=== PATIENT | male | born 1975 | race Caucasian/White ===

== ENCOUNTER 2018-12-18 14:38 | Inpatient (IN) | payer MEDICAID ==
[~2018-12-18] VITALS: Ht 165.1 cm; Wt 68.0 kg
[~2018-12-18 14:38] MED LIST: DESFLURANE 15 MIN ONE; GLYCOPYRROLATE 0.4 MG INJ ONE; LIDOCAINE 2% (SDV) 5 ML INJ ONE; NEOSTIGMINE 10 MG INJ ONE; PROPOFOL 200 MG INJ ONE
[2018-12-18] MEDS ORDERED: SOD CHLORIDE 0.9% 1,000 ML IV STA (16:25)
[2018-12-18] MEDS ORDERED: morphine 2 MG INJ IV STA (16:25)
[2018-12-18] MEDS ORDERED: ONDANSETRON 4 MG INJ IV STA (16:25)
--- NOTE | 2018-12-18 16:58 | ERD ---
ER Documentation Chief Complaint Chief Complaint ap x 2 days with n/v/d HPI This is a 43-year-old male with a nonsignificant past medical history presents ED with complaints of periumbilical abdominal pain that started 2 days ago. P atient states that the abdominal pain is constant and has been intensifying in severity over the past 2 days. Initially with onset of abdominal pain he rated pain at a 2 out of 10 but he now states that it is an 8 out of 10. Patient describes the pain as a pushing bubbly-like sensation. Admits to some fevers and chills. Denies chest pain, shortness breath, trouble breathing, nausea, vomiting, diarrhea, constipation, melena, hematochezia, hematemesis, hemoptysis, dysuria, hematuria and all the symptoms. Admits to smoking once a week. Denies alcohol and drug use. ROS All systems reviewed and are negative except as per history of present illness. Allergies Allergies: Coded Allergies: No Known Allergy (Unverified , 12/18/18) PMhx/Soc Medical and Surgical Hx: pt denies Medical Hx, pt denies Surgical Hx Hx Alcohol Use: No Hx Substance Use: No Hx Tobacco Use: Yes Smoking Status: Current some day smoker FmHx Family History: No diabetes Physical Exam Vitals Vital Signs Date Temp Pulse Resp B/P (MAP) Pulse Ox O2 O2 Flow FiO2 Time Delivery Rate 12/18/18 99.0 96 18 116/62 99 15:07 (80) Physical Exam Physical Exam Vitals signs: Reviewed by me. General: Well developed, well nourished, in no acute distress. Patient is awake and alert. Head: Normocephalic, atraumatic. Eyes: Normal conjunctiva, Pupils PERRLA, EOM intact grossly ENT: Pharynx is clear, Moist mucous membranes, external ears, nose and mouth normal Neck: Supple, no masses, lymphadenopathy or JVD Respiratory: Clear to auscultation bilaterally with no wheezing, rhonchi, rales, no distress Cardiovascular: RRR, no murmurs, rubs, or gallops Abdominal: Soft, nondistended, no peritoneal signs, no rigidity, no surgical abdomen, bowel sounds present all 4 quadrants, moderate tenderness palpation in right lower quadrant, umbilical region and right upper quadrant, no rebound tenderness, : Deferred Neurologic: Alert and oriented, moving all extremities, normal speech, no focal weakness, no cerebellar signs. Normal mentation Skin: warm and dry, No rash Psych: Normal mood Result Diagram: 12/18/18 1643 12/18/18 1643 Results 24 hrs Laboratory Tests Test 12/18/18 16:43 White Blood Count 8.1 10^3/ul Red Blood Count 6.04 10^6/ul Hemoglobin 15.1 g/dl Hematocrit 47.6 % Mean Corpuscular Volume 78.8 fl Mean Corpuscular Hemoglobin 25.0 pg Mean Corpuscular Hemoglobin Concent 31.7 g/dl Red Cell Distribution Width 14.0 % Platelet Count 204 10^3/UL Mean Platelet Volume 9.5 fl Immature Granulocytes % 0.200 % Neutrophils % 86.8 % Lymphocytes % 8.5 % Monocytes % 4.2 % Eosinophils % 0.1 % Basophils % 0.2 % Nucleated Red Blood Cells % 0.0 /100WBC Immature Granulocytes # 0.020 10^3/ul Neutrophils # 7.0 10^3/ul Lymphocytes # 0.7 10^3/ul Monocytes # 0.3 10^3/ul Eosinophils # 0.0 10^3/ul Basophils # 0.0 10^3/ul Nucleated Red Blood Cells # 0.0 10^3/ul Urine Color YELLOW Urine Clarity CLEAR Urine pH 6.0 Urine Specific [place] 1.026 Urine Ketones 1+ mg/dL Urine Nitrite NEGATIVE mg/dL Urine Bilirubin NEGATIVE mg/dL Urine Urobilinogen 1+ mg/dL Urine Leukocyte Esterase NEGATIVE [place]/ul Urine Microscopic RBC 0 /HPF Urine Microscopic WBC 4 /HPF Urine Bacteria FEW /HPF Urine Mucus MANY /HPF Urine Hemoglobin NEGATIVE mg/dL Urine Glucose NEGATIVE mg/dL Urine Total Protein 1+ mg/dl Sodium Level 142 mmol/L Potassium Level 4.0 mmol/L Chloride Level 103 mmol/L Carbon Dioxide Level 29 mmol/L Anion Gap 10 Blood Urea Nitrogen 12 mg/dl Creatinine 0.72 mg/dl Est Glomerular Filtrat Rate mL/min > 60 mL/min Glucose Level 98 mg/dl Calcium Level 9.8 mg/dl Total Bilirubin 0.7 mg/dl Direct Bilirubin 0.00 mg/dl Indirect Bilirubin 0.7 mg/dl Aspartate Amino Transf (AST/SGOT) 31 IU/L Alanine Aminotransferase (ALT/SGPT) 24 IU/L Alkaline Phosphatase 115 IU/L Total Protein 8.6 g/dl Albumin 4.9 g/dl Globulin 3.70 g/dl Albumin/Globulin Ratio 1.32 Lipase 31 U/L Current Medications Medications Dose Sig/Ella Start Time Status Last (Trade) Ordered Route PRN Stop Time Admin Dose Reason Admin Sodium 1,000 ml @ Q1H STAT 12/18/18 DC 12/18/18 Chloride 1,000 mls/hr IV 16:25 17:03 12/18/18 17:24 Morphine 4 mg ONCE STAT 12/18/18 DC 12/18/18 Sulfate IV 16:25 17:04 (morphine) 12/18/18 16:27 Ondansetron 4 mg ONCE STAT 12/18/18 DC 12/18/18 HCl (Zofran IV 16:25 17:03 Inj) 12/18/18 16:27 Piperacillin 100 ml @ ONCE ONCE 12/18/18 DC 12/18/18 Sod/ 200 mls/hr IVPB 18:30 18:37 Tazobactam 12/18/18 18:59 Sod Potassium 1,000 ml @ Q8H ONCE 12/18/18 12/18/18 Chloride/Dext 125 mls/hr IV 18:38 19:16 thalia/ Sod Cl 12/19/18 02:37 IV Flush 3 ml PER 12/18/18 (NS 3 ml) PROTOCOL IV 19:00 Ondansetron 4 mg Q6H PRN 12/18/18 HCl (Zofran IV 19:00 Inj) NAUSEA/VOMITI NG 650 mg Q6H PRN 12/18/18 Acetaminophen PO .PAIN 1-3 19:00 (Tylenol OR TEMP Tab) 1 tab Q6H PRN 12/18/18 Acetaminophen PO .MOD PAIN 19:00 / 4-6 Hydrocodone Bitart ([place] (5/325)) Morphine 2 mg Q4H PRN 12/18/18 Sulfate IV .SEVERE 19:00 (morphine) PAIN 7-10 Docusate 100 mg Q12H PRN 12/18/18 Sodium PO 19:00 (Colace) .CONSTIPATION Magnesium 30 ml DAILY PRN 12/18/18 Hydroxide PO 19:00 (Milk Of Mag) .CONSTIPATION Lorazepam 0.5 mg Q6H PRN 12/18/18 (Ativan) IV ANXIETY 19:00 Albuterol/ 3 ml Q4H RESP 12/18/18 Ipratropium THERAPY PRN 19:00 (Duoneb) HHN SHORTNESS OF BREATH 1 tab Q5M PRN 12/18/18 Nitroglycerin SL ANGINA 19:00 (Nitroglyceri n (Sl Tab) 0.4 Mg) Lorazepam 0.5 mg Q6H PRN 12/18/18 DC (Ativan) IV ANXIETY 19:00 12/18/18 19:25 Albuterol/ 3 ml Q4H RESP 12/18/18 DC Ipratropium THERAPY PRN 19:00 (Duoneb) HHN 12/18/18 19:23 SHORTNESS OF BREATH 1 tab Q5M PRN 12/18/18 DC Nitroglycerin SL ANGINA 19:00 12/18/18 19:25 (Nitroglyceri n (Sl Tab) 0.4 Mg) IV Flush 3 ml PER 12/18/18 DC (NS 3 ml) PROTOCOL IV 19:00 12/18/18 19:25 Ondansetron 4 mg Q6H PRN 12/18/18 DC HCl (Zofran IV 19:00 Inj) NAUSEA/VOMITI 12/18/18 19:25 NG 650 mg Q6H PRN 12/18/18 DC Acetaminophen PO .PAIN 1-3 19:00 (Tylenol OR TEMP 12/18/18 19:23 Tab) 1 tab Q6H PRN 12/18/18 DC Acetaminophen PO .MOD PAIN 19:00 / 4-6 12/18/18 19:25 Hydrocodone Bitart ([place] (5/325)) Morphine 2 mg Q4H PRN 12/18/18 DC Sulfate IV .SEVERE 19:00 (morphine) PAIN 7-10 12/18/18 19:25 Docusate 100 mg Q12H PRN 12/18/18 DC Sodium PO 19:00 (Colace) .CONSTIPATION 12/18/18 19:25 Magnesium 30 ml DAILY PRN 12/18/18 DC Hydroxide PO 19:00 (Milk Of Mag) .CONSTIPATION 12/18/18 19:25 Heparin 5,000 unit Q12 SC 12/18/18 Sodium 22:00 (Porcine) (Heparin (5000 Units/1ml)) Procedures/MDM Diagnostic imaging: [place] [address] Radiology Main Line: [phone] DIAGNOSTIC IMAGING REPORT Patient: DINA PARADA : 1975 Age: 43 Sex: M MR #: [id number] [facility] #: [id number] DOS: 12/18/18 1625 Ordering MD: EVELYN TILLEY PA-C [facility] Room/Bed: PROCEDURE: CT abdomen and pelvis without contrast. CLINICAL INDICATION: Abdominal pain. TECHNIQUE: CT scan of the abdomen and pelvis without contrast was performed. Sagittal and coronal reformatted images were obtained from the axial source images. DICOM images are available. One or more of the following dose reduction techniques were used: Automated exposure control, adjustment of the mA and/or kV according to patient size, use of iterative reconstruction technique. CTDI = 6.32 mGy; DLP = 356.62 mGy-cm COMPARISON: Ultrasound 12/18/2018 FINDINGS: Visualized lower thorax: The lung bases are clear. There is no evidence for pleural effusion. Liver, gallbladder, pancreas and spleen: The liver is normal and size, contour and attenuation. There is no evidence for a liver mass or ductal dilatation. The gallbladder is unremarkable. No common bile duct abnormality is demonstrated. The pancreas is unremarkable. The spleen is normal in size. Adrenal glands and genitourinary system: The adrenal glands are normal bilaterally. The kidneys are normal and size, contour and attenuation with no evidence for masses, calculi or hydronephrosis. The ureters are unremarkable. No urinary bladder abnormality is demonstrated. Mild prostatomegaly is present. The visualized scrotum is unremarkable. Gastrointestinal system: The stomach is normal in caliber with no abnormality of significance. The small bowel is normal in caliber with no ileus, obstruction or wall thickening. There is an appendicolith within the dilated appendix the diameter of the medially located appendix measuring 15 mm. A tiny punctate focus of extraluminal gas anterior to the abnormal appendix is consi stent with contained micro perforation. In addition, there is moderate stranding of the fat adjacent to the appendix and extending posterior to the cecum into an inferior right perihepatic location. There is no evidence of abscess formation. There is adjacent right lower quadrant mesenteric lymph node prominence the short axis of the largest lymph node measuring 7 mm. The colon shows no evidence for wall thickening or acute abnormality. There is no evidence for colitis or diverticulitis. Peritoneum, retroperitoneum, lymph nodes and vessels: The abdominal aorta is normal in caliber. There is no evidence for atherosclerotic calcification. The inferior vena cava is unremarkable. There is no evidence for adenopathy or mass. A small amount of pelvic ascites is present. There is a fat-containing umbilical hernia measuring 3.6 cm doubt fluid in the hernia sac. No pneumoperitoneum is present Osseous structures and musculoskeletal findings: There is no fracture, lytic or blastic lesion. Degenerative disc disease at L5-S1 is present. No muscular abnormality or soft tissue pathology is present. RPTAT:HJJR IMPRESSION: 1. Combination of findings compatible with acute appendicitis with contained micro perforation, a tiny punctate focus of extraluminal gas anterior to the abnormal appendix with free fluid in the pelvis but no evidence of abscess formation or pneumoperitoneum. 2. Fat-containing umbilical hernia without evidence of inflammation or fluid in the hernia sac. 3. Critical results discussed by telephone with the patient's emergency room healthcare provider, Evelyn Tilley, at 17:53. Physician Francisca Date Time Electronically viewed and signed by Physician Francisca on 12/18/2018 17:54 JR/ CC: EVELYN TILLEY PA-C [id number] [place] [address] Radiology Main Line: [phone] DIAGNOSTIC IMAGING REPORT Patient: DINA PARADA : 1975 Age: 43 Sex: M MR #: [id number] DOS: 12/18/18 1625 Ordering MD: EVELYN TILLEY PA-C Location: [facility] Room/Bed: PROCEDURE: US Abdomen (right upper quadrant). CLINICAL INDICATION: Abdominal pain TECHNIQUE: Multiple real-time longitudinal and transverse images of the right upper quadrant of the abdomen were acquired utilizing a curved array transducer. Images were reviewed on a high-resolution PACS workstation. COMPARISON: None FINDINGS: The liver is normal in size and echogenicity without focal mass or intrahepatic biliary dilatation. The gallbladder is normal. There is no pericholecystic fluid or gallbladder wall thickening or gallstones. No intra or extrahepatic biliary dilatation is seen. The common bile duct measures 2.5 mm in maximal dimension. The visualized portions of the pancreas are unremarkable with obscuration of the tail of the pancreas. No free fluid is identified. The right kidney measures 10.3 cm in length. There is normal echogenicity withi n the right kidney. There is no perinephric fluid collection. No hydronephrosis, mass, or calculus is seen. IMPRESSION: Unremarkable right upper quadrant ultrasound. RPTAT: JJ .Tarik Hennessy MD, Date Time Electronically viewed and signed by .Tarik Hennessy MD, on 12/18/2018 16:55 .A/ CC: EVELYN TILLEY PA-C [id number] LAB INTERPRETATION: CBC shows no evidence of hemorrhage or infection, elevated neutrophil percentage of 86.8 Chemistry shows no evidence of significant electrolyte abnormalities or renal insufficiency Liver function test shows no evidence of acute biliary or hepatic dysfunction Coagulation study showed no concerning coagulopathy Lipase shows no evidence of acute pancreatitis Urinalysis remarkable for for microscopic WBC, few bacteria, no RBCs, no leukocyte esterase and no nitrite ER COURSE: The patient was given morphine, zofran and normal saline. The medication was well tolerated and the patient reports improvement in symptoms. The patient was stable throughout ED course. I kept the patient and/or family informed of laboratory and diagnostic imaging results throughout the emergency room course. The patient was promptly evaluated and a treatment plan was devised based on H&P and other data. This plan was discussed with the patient who agreed and had no further questions or concerns prior to discharge. MEDICAL DECISION MAKING: This is a 43-year-old male presents ED with acute appendicitis. Patient will be admitted to hospital for surgery and further treatment. Discussed case with overseeing physician , will be facilitating admission of patient into hospital. Dr. banegas has evaluated patient at bedside. Disclaimer: Inadvertent spelling and grammatical errors are likely due to E HR/dictation software use and do not reflect on the overall quality of patient care. Also, please note that the electronic time recorded on this note does not necessarily reflect the actual time of the patient encounter. Departure Diagnosis: Primary Impression: Acute abdominal pain in right lower quadrant Additional Impression: Acute appendicitis Acute appendicitis type: unspecified acute appendicitis type Qualified Codes: K35.80 - Unspecified acute appendicitis Condition: Stable Comments Supervisory Addendum I evaluated the patient. Abdomen is soft with moderate, right lower quadrant tenderness and rebound. Differential diagnosis and management options discussed. Results reviewed. I agree with the assessment and the plan of care as documented in the PA notes. Patient is n.p.o. and last intake was yesterday. Zosyn 3.375 g IV piggyback is given and maintenance fluids initiated. Counseled patient regarding diagnostic workup, diagnosis and need for admission. Case discussed with surgery, Dr. Nasrin Griffith. Admit to Med/Surg Dr Hopkins. EVELYN TILLEY PA-C Dec 18, 2018 16:58 GONSALO BANEGAS MD Dec 18, 2018 19:52
[2018-12-18] MEDS ORDERED: PIPER-TAZO 3.375 GM IV (PMX) 100 ML IVPB ONE (18:30)
[2018-12-18] MEDS ORDERED: D5W-0.45 NACL + KCL 20 MEQ 1,000 ML IV ONE (18:38)
[2018-12-18] MEDS ORDERED: NACL 0.9% 3 ML SYG IV SCH ×2 (19:00)
[2018-12-18] MEDS ORDERED: HYDROCODONE/APAP (5/325) TAB PO PRN ×2 (19:00)
[2018-12-18] MEDS ORDERED: ACETAMINOPHEN 325 MG TAB PO PRN ×2 (19:00)
[2018-12-18] MEDS ORDERED: LORAZEPAM 2 MG INJ IV PRN ×2 (19:00)
[2018-12-18] MEDS ORDERED: morphine 2 MG INJ IV PRN ×2 (19:00)
[2018-12-18] MEDS ORDERED: ALBUTEROL/IPRATROPIUM (NEB) 3 ML AMP HHN PRN ×2 (19:00)
[2018-12-18] MEDS ORDERED: DOCUSATE SODIUM 100 MG CAP PO PRN ×2 (19:00)
[2018-12-18] MEDS ORDERED: ONDANSETRON 4 MG INJ IV PRN ×2 (19:00)
[2018-12-18] MEDS ORDERED: NITROGLYCERIN (SL) 0.4 MG TAB SL PRN ×2 (19:00)
[2018-12-18] MEDS ORDERED: MAGNESIUM HYDROXIDE 30ML CUP PO PRN ×2 (19:00)
--- NOTE | 2018-12-18 20:03 | HP ---
DATE OF ADMISSION: 12/18/2018 IDENTIFICATION: This is a 43-year-old male. CHIEF COMPLAINT: Abdominal pain. HISTORY OF PRESENT ILLNESS: A 43-year-old male with no significant past medical history who has been having abdominal pain. He had some mild nausea, vomiting symptoms, nonbilious, nonbloody. All thes e symptoms have been going on for the last 2 days. He has never had these symptoms before. He has h ad some questionable subjective fevers and chills, but no chest pain, no upper or lower GI bleeding, no shortness of breath, no diarrhea or constipation. No headaches or dizziness or loss of consciousn ess. When the patient came in, he had imaging study performed including a gallbladder ultrasound emanuel t was unremarkable, but a CT abdomen and pelvis did show signs of combination of findings compatible with acute appendicitis with contained microperforation, a tiny punctate focus of extraluminal gas __ ___ abnormal appendix with free fluid in the pelvis, but no evidence of any abscess formation or pneu moperitoneum. There is also fat-containing umbilical hernia with no evidence of any inflammation or fluid in the hernia sac and a call was made out to the general surgeon to come evaluate the patient w hich is still pending. The patient was also given a dose of pain control medications, IV fluids and IV antibiotics in the ER. PAST MEDICAL HISTORY: As stated above. ALLERGIES: NO KNOWN DRUG ALLERGIES. HOME MEDICATIONS: Apparently none. PAST SURGICAL HISTORY: None. SOCIAL HISTORY: Occasional smoking, occasional alcohol use, no IV drug abuse. FAMILY HISTORY: Noncontributory. PHYSICAL EXAMINATION: VITAL SIGNS: Today, T-max 99.0, pulse 96, respirations 18, blood pressure 116/62, satting at 99% on room air. GENERAL: The patient is lying in bed, answering questions appropriately, in no acute distress. HEENT: Pupils are equal, round, react to light. Extraocular muscles are intact. NECK: Supple. No thyromegaly. LUNGS: Clear to auscultation bilaterally. CARDIOVASCULAR: S1, S2 heard. No rubs or gallops. ABDOMEN: Mild tenderness to palpation in right lower quadrant area; otherwise no rebound or guarding . Normal bowel sounds. MUSCULOSKELETAL: No lower extremity edema bilaterally. NEUROLOGIC: No focal deficits. LABORATORIES: CBC is completely normal. The comprehensive metabolic panel is normal. Lipase is nor mal. UA shows negative nitrite, negative leukocyte esterase. IMAGING: We mentioned the CT abdomen and pelvis findings. ASSESSMENT AND PLAN: A 43-year-old male with abdominal pain, nausea, vomiting symptoms, signs of acu te appendicitis. 1. Abdominal pain secondary to acute appendicitis. Admit the patient. Keep him n.p.o. Give him IV fluids. Check TSH, A1c, lipid panel. Tylenol p.r.n. pain and fevers, IV fluids, antiemetics. We w ill get a surgery consult. The patient likely will benefit from laparoscopic cholecystectomy, but we will discuss with surgery team first. IV antibiotics for now given possible microperforation. 2. Deep venous thrombosis prophylaxis, heparin cutaneously. Dictated By: ASMEER AMEZCUA/KIKI Conf#: [id number] DID#: [id number] CC: MURALI GALINDO MD; GONSALO WILLIAMSON MD;*EndCC*
[2018-12-18 21:17] VITALS: Ht 165.1 cm; Wt 68.0 kg
[2018-12-18 21:18] VITALS: BP 115/70; PULSE 98; RESP 18
[2018-12-18] MEDS: HEPARIN 5,000 UNIT/1 ML VIAL SC SCH (21:56)
[2018-12-18] MEDS ORDERED: BUPIVACAINE 0.5%/EPI (SDV) 30 ML INJ ONE (22:04)
--- NOTE | 2018-12-18 22:29 | CONS ---
Assessment/Plan Assessment/Plan Assessment/Plan (Daily) 43-year-old male presents with abdominal pain signs and symptoms consistent with acute appendicitis with possible microperforation Recommendation IV antibiotics IV fluids urgent laparoscopy with laparoscopic appendectomy details of procedure risk benefits alternatives were discussed including possibility of postoperative abscess need for commercial procedure Consultation Date/Type/Reason Admit Date/Time Dec 18, 2018 at 19:30 Date of Consultation: Dec 18, 2018 Type of Consult Surgery consult Reason for Consultation Abdominal pain CT evidence of appendicitis Requesting Provider: SAMEER MILLER Date/Time of Note DATE: 12/18/18 TIME: 22:29 Hx of Present Illness Patient presented to the emergency room with 24-hour history of worsening abdominal pain. It began in the periumbilical region but had migrated to the right side and right lower quadrant with worsening intensity. On evaluation in the emergency room despite normal CBC and WBC CAT scan showed evidence of acute appendicitis with possible microperforation with extraluminal gas. No evidence of abscess. No significant past medical history no significant past surgical history Medications none. Allergies none Past Medical History Medications Current Medications Potassium Chloride/Dextrose/ Sod Cl 1,000 ml @ 125 mls/hr Q8H ONCE IV Last administered on 12/18/18at 19:16; Admin Dose 125 MLS/HR; Start 12/18/18 at 18:38; Stop 12/19/18 at 02:37 IV Flush (NS 3 ml) 3 ml PER PROTOCOL IV ; Start 12/18/18 at 19:00 Ondansetron HCl (Zofran Inj) 4 mg Q6H PRN IV NAUSEA/VOMITING; Start 12/18/18 at 19:00 Acetaminophen (Tylenol Tab) 650 mg Q6H PRN PO .PAIN 1-3 OR TEMP; Start 12/18/18 at 19:00 Acetaminophen/ Hydrocodone Bitart ([place] (5/325)) 1 tab Q6H PRN PO .MOD PAIN 4- 6; Start 12/18/18 at 19:00 Morphine Sulfate (morphine) 2 mg Q4H PRN IV .SEVERE PAIN 7-10 Last administered on 12/18/18at 21:57; Admin Dose 2 MG; Start 12/18/18 at 19:00 Docusate Sodium (Colace) 100 mg Q12H PRN PO .CONSTIPATION; Start 12/18/18 at 19:00 Magnesium Hydroxide (Milk Of Mag) 30 ml DAILY PRN PO .CONSTIPATION; Start 12/18/18 at 19:00 Lorazepam (Ativan) 0.5 mg Q6H PRN IV ANXIETY; Start 12/18/18 at 19:00 Albuterol/ Ipratropium (Duoneb) 3 ml Q4H RESP THERAPY PRN HHN SHORTNESS OF BREATH; Start 12/18/18 at 19:00 Nitroglycerin (Nitroglycerin (Sl Tab) 0.4 Mg) 1 tab Q5M PRN SL ANGINA; Start 12/18/18 at 19:00 Heparin Sodium (Porcine) (Heparin (5000 Units/1ml)) 5,000 unit Q12 SC ; Start 12/18/18 at 22:00 Allergies: Coded Allergies: No Known Allergy (Unverified , 12/18/18) Social History Smoking Status: Light tobacco smoker Exam/Review of Systems Exam Vitals Vital Signs Date Temp Pulse Resp B/P (MAP) Pulse Ox O2 O2 Flow FiO2 Time Delivery Rate 12/18/18 100.0 98 18 115/70 97 Room Air 21:18 (85) Exam Awake alert oriented x3 Lungs clear to auscultation. Heart regular rate and rhythm normal S1-S2 no gallops murmurs or rubs. Abdomen soft marked tenderness in right lower quadrant nondistended no palpable masses Results Result Diagram: 12/18/18 1643 12/18/18 1643 Results 24hrs Laboratory Tests Test 12/18/18 16:43 12/18/18 16:45 White Blood Count 8.1 Red Blood Count 6.04 Hemoglobin 15.1 Hematocrit 47.6 Mean Corpuscular Volume 78.8 L Mean Corpuscular Hemoglobin 25.0 L Mean Corpuscular Hemoglobin Concent 31.7 L Red Cell Distribution Width 14.0 Platelet Count 204 Mean Platelet Volume 9.5 Immature Granulocytes % 0.200 Neutrophils % 86.8 H Lymphocytes % 8.5 L Monocytes % 4.2 Eosinophils % 0.1 Basophils % 0.2 Nucleated Red Blood Cells % 0.0 Immature Granulocytes # 0.020 Neutrophils # 7.0 Lymphocytes # 0.7 L Monocytes # 0.3 Eosinophils # 0.0 Basophils # 0.0 Nucleated Red Blood Cells # 0.0 Prothrombin Time 13.5 Prothrombin Time Ratio 1.1 INR International Normalized Ratio 1.02 Activated Partial Thromboplast Time 26.9 Urine Color YELLOW Urine Clarity CLEAR Urine pH 6.0 Urine Specific [place] 1.026 Urine Ketones 1+ H Urine Nitrite NEGATIVE Urine Bilirubin NEGATIVE Urine Urobilinogen 1+ H Urine Leukocyte Esterase NEGATIVE Urine Microscopic RBC 0 Urine Microscopic WBC 4 Urine Bacteria FEW A Urine Mucus MANY A Urine Hemoglobin NEGATIVE Urine Glucose NEGATIVE Urine Total Protein 1+ H Sodium Level 142 Potassium Level 4.0 Chloride Level 103 Carbon Dioxide Level 29 Anion Gap 10 Blood Urea Nitrogen 12 Creatinine 0.72 Est Glomerular Filtrat Rate mL/min > 60 Glucose Level 98 Calcium Level 9.8 Total Bilirubin 0.7 Direct Bilirubin 0.00 Indirect Bilirubin 0.7 Aspartate Amino Transf (AST/SGOT) 31 Alanine Aminotransferase (ALT/SGPT) 24 Alkaline Phosphatase 115 Total Protein 8.6 H Albumin 4.9 Globulin 3.70 H Albumin/Globulin Ratio 1.32 Lipase 31 Free Thyroxine 0.93 Medications Medication Current Medications Potassium Chloride/Dextrose/ Sod Cl 1,000 ml @ 125 mls/hr Q8H ONCE IV Last administered on 12/18/18at 19:16; Admin Dose 125 MLS/HR; Start 12/18/18 at 18:38; Stop 12/19/18 at 02:37 IV Flush (NS 3 ml) 3 ml PER PROTOCOL IV ; Start 12/18/18 at 19:00 Ondansetron HCl (Zofran Inj) 4 mg Q6H PRN IV NAUSEA/VOMITING; Start 12/18/18 at 19:00 Acetaminophen (Tylenol Tab) 650 mg Q6H PRN PO .PAIN 1-3 OR TEMP; Start 12/18/18 at 19:00 Acetaminophen/ Hydrocodone Bitart ([place] (5/325)) 1 tab Q6H PRN PO .MOD PAIN 4- 6; Start 12/18/18 at 19:00 Morphine Sulfate (morphine) 2 mg Q4H PRN IV .SEVERE PAIN 7-10 Last administered on 12/18/18at 21:57; Admin Dose 2 MG; Start 12/18/18 at 19:00 Docusate Sodium (Colace) 100 mg Q12H PRN PO .CONSTIPATION; Start 12/18/18 at 19:00 Magnesium Hydroxide (Milk Of Mag) 30 ml DAILY PRN PO .CONSTIPATION; Start 12/18/18 at 19:00 Lorazepam (Ativan) 0.5 mg Q6H PRN IV ANXIETY; Start 12/18/18 at 19:00 Albuterol/ Ipratropium (Duoneb) 3 ml Q4H RESP THERAPY PRN HHN SHORTNESS OF BREATH; Start 12/18/18 at 19:00 Nitroglycerin (Nitroglycerin (Sl Tab) 0.4 Mg) 1 tab Q5M PRN SL ANGINA; Start 12/18/18 at 19:00 Heparin Sodium (Porcine) (Heparin (5000 Units/1ml)) 5,000 unit Q12 SC ; Start 12/18/18 at 22:00 MURALI GALINDO MD Dec 18, 2018 22:29
--- NOTE | 2018-12-18 22:56 | PREAC ---
Date/Time of Note Date/Time of Note DATE: 12/18/18 TIME: 22:55 Anesthesia Eval and Record Evaluation Time Pre-Procedure Interview DATE: 12/18/18 TIME: 22:55 Age 43 Sex male NPO: 8 hrs Preoperative diagnosis appendicitis Planned procedure laparoscopic appendectomy Past Medical History Past Medical History: None Surgery & Anesthesia Issues No known issue Meds Anticoagulation: No Beta Jo within 24 hr: No Reason Beta Jo not given: Pt. not on B-Jo Current Medications Potassium Chloride/Dextrose/ Sod Cl 1,000 ml @ 125 mls/hr Q8H ONCE IV Last administered on 12/18/18at 19:16; Admin Dose 125 MLS/HR; Start 12/18/18 at 18:38; Stop 12/19/18 at 02:37 IV Flush (NS 3 ml) 3 ml PER PROTOCOL IV ; Start 12/18/18 at 19:00 Ondansetron HCl (Zofran Inj) 4 mg Q6H PRN IV NAUSEA/VOMITING; Start 12/18/18 at 19:00 Acetaminophen (Tylenol Tab) 650 mg Q6H PRN PO .PAIN 1-3 OR TEMP; Start 12/18/18 at 19:00 Acetaminophen/ Hydrocodone Bitart ([place] (5/325)) 1 tab Q6H PRN PO .MOD PAIN 4- 6; Start 12/18/18 at 19:00 Morphine Sulfate (morphine) 2 mg Q4H PRN IV .SEVERE PAIN 7-10 Last administered on 12/18/18at 21:57; Admin Dose 2 MG; Start 12/18/18 at 19:00 Docusate Sodium (Colace) 100 mg Q12H PRN PO .CONSTIPATION; Start 12/18/18 at 19:00 Magnesium Hydroxide (Milk Of Mag) 30 ml DAILY PRN PO .CONSTIPATION; Start 12/18/18 at 19:00 Lorazepam (Ativan) 0.5 mg Q6H PRN IV ANXIETY; Start 12/18/18 at 19:00 Albuterol/ Ipratropium (Duoneb) 3 ml Q4H RESP THERAPY PRN HHN SHORTNESS OF BREATH; Start 12/18/18 at 19:00 Nitroglycerin (Nitroglycerin (Sl Tab) 0.4 Mg) 1 tab Q5M PRN SL ANGINA; Start 12/18/18 at 19:00 Heparin Sodium (Porcine) (Heparin (5000 Units/1ml)) 5,000 unit Q12 SC ; Start 12/18/18 at 22:00 Meds reviewed: Yes Allergies Coded Allergies: No Known Allergy (Unverified , 12/18/18) Allergies Reviewed: Yes Labs/Studies Labs Reviewed: Reviewed by anesthesiologist Result Diagram: 12/18/18 1643 12/18/18 1643 Laboratory Tests 12/18/18 16:43 test: N/A Pre-procedure Exam Last vitals Vital Signs Date Temp Pulse Resp B/P (MAP) Pulse Ox O2 O2 Flow FiO2 Time Delivery Rate 12/18/18 100.0 98 18 115/70 97 Room Air 21:18 (85) Airway: Adequate mouth opening, Adequate thyromental dist Mallampati: Mallampati II Teeth: Normal Lung: Normal Heart: Normal ASA Physical Status ASA physical status: 2 Emergency: E Planned Anesthetic General/MAC: ETT Planned Pain Management Parenteral pain med Pre-operative Attestations Prior to commencing anesthesia and surgery, the patient was re-evaluated, there was verification of: *The patient's identity *The results of appropriate recent lab work and preoperative vital signs *The above evaluation not changing prior to induction *Anesthetic plan, risk benefits, alternative and complications discussed with patient/family; questions answered; patient/family understands, accepts and wishes to proceed. ALEXYS FERNANDEZ Dec 18, 2018 22:56
[2018-12-18] MEDS ORDERED: ROCURONIUM 50 MG INJ ONE (23:22)
[2018-12-18] MEDS ORDERED: ONDANSETRON 4 MG INJ ONE (23:23)
[2018-12-18] MEDS ORDERED: DEXAMETHASONE 4 MG/ML 5 ML INJ ONE (23:23)
[2018-12-19] VITALS (17 sets, daily range): BP systolic 92–116; BP diastolic 58–67; PULSE 87–114; RESP 7–19
[2018-12-19] MEDS ORDERED: GLYCOPYRROLATE 0.4 MG INJ ONE (00:13)
[2018-12-19] MEDS ORDERED: NEOSTIGMINE 10 MG INJ ONE (00:13)
--- NOTE | 2018-12-19 00:20 | PAC ---
Date/Time of Note Date/Time of Note DATE: 12/19/18 TIME: 00:19 Post-Anesthesia Notes Post-Anesthesia Note Last documented vital signs Vital Signs Date Temp Pulse Resp B/P (MAP) Pulse Ox O2 O2 Flow FiO2 Time Delivery Rate 12/19/18 100.0 98 18 115/70 97 Room Air 0019 (85) Activity: WNL Respiratory function: WNL Cardiovascular function: WNL Mental status: Baseline Pain reasonably controlled: Yes Hydration appropriate: Yes Nausea/Vomiting absent: Yes ALEXYS FERNANDEZ Dec 19, 2018 00:20
[2018-12-19] MEDS ORDERED: MIDAZOLAM 1 MG/ML 2 ML INJ IV PRN (00:30)
[2018-12-19] MEDS ORDERED: ONDANSETRON 4 MG INJ IV PRN ×2 (00:30→01:00)
[2018-12-19] MEDS ORDERED: ALBUTEROL 0.083% (NEB) 2.5 MG/3 ML AMP HHN PRN (00:30)
[2018-12-19] MEDS ORDERED: FENTAnyl 50 MCG/ML VIAL IV PRN ×3 (00:30)
[2018-12-19] MEDS ORDERED: DIPHENHYDRAMINE 50 MG INJ IV PRN (00:30)
[2018-12-19] MEDS ORDERED: hydrALAzine 20 MG INJ IV PRN (00:30)
[2018-12-19] MEDS ORDERED: MEPERIDINE 25 MG INJ IV PRN (00:30)
[2018-12-19] MEDS ORDERED: KETOROLAC 30 MG INJ IV PRN (00:30)
[2018-12-19] MEDS ORDERED: HYDROmorphONE 1 MG/5 ML IV SYRINGE IV PRN ×3 (00:30)
[2018-12-19] MEDS ORDERED: METOCLOPRAMIDE 10 MG INJ IV PRN (00:30)
[2018-12-19] MEDS ORDERED: LABETALOL HCL 20MG INJ IV PRN (00:30)
[2018-12-19] MEDS ORDERED: EPHEDrine SULFATE 50 MG/5 ML SYG IV PRN (00:30)
--- NOTE | 2018-12-19 00:44 | OPR ---
Date/Time of Note Date/Time of Note DATE: 12/19/18 TIME: 00:37 Operative Report Free Text/Dictation Operative report Procedure Date: Dec 19, 2018 Preoperative Diagnosis Acute appendicitis possible perforation Postoperative Diagnosis Perforated appendicitis Operation/Procedure Performed Laparoscopic appendectomy Surgeon Murali Griffith MD see signature line Key Worker None Anesthesia Type: general Anesthesiologist: ALEXYS FERNANDEZ Estimated Blood Loss: minimal Transfusion none Specimen Appendix Grafts/Implants none Tubes/Drains None Complications none Pt Condition Post Procedure: stable Disposition: PACU Indications Patient presented with 2-day history of worsening abdominal pain presented to the emergency room for evaluation CAT scan revealed signs of appendicitis with probable perforation is small extraluminal gas surgical consultation requested. I recommended to the patient that we do an urgent laparoscopic appendectomy details the procedure risk benefits alternatives discussed patient agreed to proceed he was brought urgently to the operating room Procedure Description Patient brought to the operating placed supine position general she is administered with intubation patient prepped draped in sterile fashion orogastric tube inserted by anesthesia timeout was completed. A varies needle in the left upper quadrant was inserted and insufflation delivered to maintain pneumoperitoneum at 15 mmHg throughout the procedure small stab incision was made at the upper aspect of the umbilicus at the area where there appeared to be a small incarcerated fat versus hernia. Trocar was inserted with 30 degree 5 mm scope the Veress was removed and infra umbilical 5 more trocar suprapubic 12 m trocar inserted next upon entering the abdomen it appeared that there had been no evidence of perforation as there was purulent fluid along the right gutter in the pelvis this was aspirated and sent for huang culture aerobes anaerobes fungal. Total of 1/2 L of normal saline was used to irrigate the abdomen and aspirated until clear throughout the procedure. There is serous exudate along the terminal ileum and there was a fair amount of peritonitis along this serosa and abdominal wall. The appendix was able to be bluntly dissected off the terminal ileum and then elevated and a window was made at the base of the appendix and the mesoappendix. An [place] 35 mm vascular SHASHA was then brought into the field and used to divide the mesoappendix first followed by the appendix itself leaving very short appendiceal stump. A specimen bag was inserted through the 12 mm port and the appendix placed in th e center was removed. Trocar was then reinserted and irrigation on all 4 quadrants was completed and aspirated until clear. The pneumoperitoneum was allowed to escape the insufflation halted and the trochars were removed. There was some incarcerated fat in the upper umbilical supraumbilical site this was extricated and small cautery used at the neck. This yielded a small fascial defect which was repaired with 0 Vicryl suture was then closed in layers with 3- 0 Vicryl and 4-0 Monocryl and Dermabond for dressing Counts correct x2 MURALI GRIFFITH MD Dec 19, 2018 00:44
[2018-12-19] MEDS ORDERED: HYDROCODONE/APAP (5/325) TAB PO PRN (01:00)
[2018-12-19] MEDS ORDERED: ACETAMINOPHEN 325 MG TAB PO PRN (01:00)
[2018-12-19] MEDS ORDERED: IBUPROFEN 600 MG TAB PO PRN (01:00)
[2018-12-19] MEDS ORDERED: HYDROmorphONE 0.5 MG/0.5 ML SYG IV PRN (01:00)
[2018-12-19] MEDS: D5W-0.45 NACL + KCL 20 MEQ 1,000 ML IV SCH ×3 (01:24→20:37)
[2018-12-19] MEDS: PIPER-TAZO 3.375 GM IV (PMX) 100 ML IVPB SCH ×4 (05:32→23:11)
[2018-12-19] MEDS: HEPARIN 5,000 UNIT/1 ML VIAL SC SCH ×2 (08:56→20:39)
--- NOTE | 2018-12-19 12:02 | PN ---
Date/Time of Note Date/Time of Note DATE: 12/19/18 TIME: 12:00 Assessment/Plan VTE Prophylaxis Risk score (from Ns)>0 risk: 4 SCD applied (from [facility] [place]): No SCD contraindicated: other Pharmacological prophylaxis: heparin Lines/Catheters IV Catheter Type (from [facility]): Peripheral IV Assessment/Plan Hospital Course S: Patient seen by surgery team today, had the surgical operation earlier this morning. No acute events overnight O: Vs - see below PE: GENERAL:lying in bed, answering questions appropriately, in no acute distress. HEENT: Pupils are equal, round, react to light. Extraocular muscles are intact. NECK: Supple. No thyromegaly. LUNGS: Clear to auscultation bilaterally. CARDIOVASCULAR: S1, S2 heard. No rubs or gallops. ABDOMEN: Mild tenderness to palpation in right lower quadrant area; otherwise no rebound or guarding. Normal bowel sounds. MUSCULOSKELETAL: No lower extremity edema bilaterally. NEUROLOGIC: No focal deficits. Date/Time of Note Date/Time of Note DATE: 12/19/18 TIME: 00:37 Operative Report Free Text/Dictation Operative report Procedure Date: Dec 19, 2018 Preoperative Diagnosis Acute appendicitis possible perforation Postoperative Diagnosis Perforated appendicitis Operation/Procedure Performed Laparoscopic appendectomy Surgeon Emanuel Griffith MD ASSESSMENT AND PLAN: 43-year-old male with abdominal pain, nausea, vomiting symptoms, signs of acute appendicitis. 1. Abdominal pain secondary to acute appendicitis-again status post surgical procedure yesterday - POD # 1. - Continue IV fluids, Tylenol p.r.n. pain and fevers, IV fluids, antiemet ics. -Follow-up postop recommendations from surgery consult including diet order 2. Deep venous thrombosis prophylaxis, heparin cutaneously. Result Diagram: 12/19/1842912/19/18 043 Results 24hrs Laboratory Tests Test 12/18/18 16:43 12/18/18 16:45 12/19/18 04:30 White Blood Count 8.1 13.5 #H Red Blood Count 6.04 5.06 Hemoglobin 15.1 12.9 L Hematocrit 47.6 39.6 L Mean Corpuscular Volume 78.8 L 78.3 L Mean Corpuscular Hemoglobin 25.0 L 25.5 L Mean Corpuscular Hemoglobin Concent 31.7 L 32.6 Red Cell Distribution Width 14.0 14.5 Platelet Count 204 177 Mean Platelet Volume 9.5 10.0 Immature Granulocytes % 0.200 0.300 Neutrophils % 86.8 H Lymphocytes % 8.5 L Monocytes % 4.2 Eosinophils % 0.1 Basophils % 0.2 Nucleated Red Blood Cells % 0.0 0.0 Immature Granulocytes # 0.020 0.040 H Neutrophils # 7.0 Lymphocytes # 0.7 L Monocytes # 0.3 Eosinophils # 0.0 Basophils # 0.0 Nucleated Red Blood Cells # 0.0 Prothrombin Time 13.5 Prothrombin Time Ratio 1.1 INR International Normalized Ratio 1.02 Activated Partial Thromboplast Time 26.9 Urine Color YELLOW Urine Clarity CLEAR Urine pH 6.0 Urine Specific [place] 1.026 Urine Ketones 1+ H Urine Nitrite NEGATIVE Urine Bilirubin NEGATIVE Urine Urobilinogen 1+ H Urine Leukocyte Esterase NEGATIVE Urine Microscopic RBC 0 Urine Microscopic WBC 4 Urine Bacteria FEW A Urine Mucus MANY A Urine Hemoglobin NEGATIVE Urine Glucose NEGATIVE Urine Total Protein 1+ H Sodium Level 142 138 Potassium Level 4.0 4.2 Chloride Level 103 106 Carbon Dioxide Level 29 28 Anion Gap 10 4 L Blood Urea Nitrogen 12 11 Creatinine 0.72 0.78 Est Glomerular Filtrat Rate mL/min > 60 > 60 Glucose Level 98 167 Calcium Level 9.8 8.6 Total Bilirubin 0.7 Direct Bilirubin 0.00 Indirect Bilirubin 0.7 Aspartate Amino Transf (AST/SGOT) 31 Alanine Aminotransferase (ALT/SGPT) 24 Alkaline Phosphatase 115 Total Protein 8.6 H Albumin 4.9 Globulin 3.70 H Albumin/Globulin Ratio 1.32 Lipase 31 Free Thyroxine 0.93 Hemoglobin A1c 5.2 Triglycerides Level 49 Cholesterol Level 151 LDL Cholesterol, Calculated 87 HDL Cholesterol 54 Cholesterol/HDL Ratio 2.7 Thyroid Stimulating Hormone (TSH) 0.257 L Exam/Review of Systems Exam Vitals Vital Signs Date Temp Pulse Resp B/P (MAP) Pulse Ox O2 O2 Flow FiO2 Time Delivery Rate 12/19/18 98.6 98 18 101/61 99 Room Air 2.0 07:35 (74) Nasal Cannula Intake and Output 12/18/18 12/18/18 12/19/18 1515:00 23:00 07:00 IntakeIntake Total 1100 ml 990 ml OutputOutput Total 150 ml 350 ml BalanceBalance 950 ml 640 ml Results Results 24hrs Laboratory Tests Test 12/18/18 16:43 12/18/18 16:45 12/19/18 04:30 White Blood Count 8.1 13.5 #H Red Blood Count 6.04 5.06 Hemoglobin 15.1 12.9 L Hematocrit 47.6 39.6 L Mean Corpuscular Volume 78.8 L 78.3 L Mean Corpuscular Hemoglobin 25.0 L 25.5 L Mean Corpuscular Hemoglobin Concent 31.7 L 32.6 Red Cell Distribution Width 14.0 14.5 Platelet Count 204 177 Mean Platelet Volume 9.5 10.0 Immature Granulocytes % 0.200 0.300 Neutrophils % 86.8 H Lymphocytes % 8.5 L Monocytes % 4.2 Eosinophils % 0.1 Basophils % 0.2 Nucleated Red Blood Cells % 0.0 0.0 Immature Granulocytes # 0.020 0.040 H Neutrophils # 7.0 Lymphocytes # 0.7 L Monocytes # 0.3 Eosinophils # 0.0 Basophils # 0.0 Nucleated Red Blood Cells # 0.0 Prothrombin Time 13.5 Prothrombin Time Ratio 1.1 INR International Normalized Ratio 1.02 Activated Partial Thromboplast Time 26.9 Urine Color YELLOW Urine Clarity CLEAR Urine pH 6.0 Urine Specific [place] 1.026 Urine Ketones 1+ H Urine Nitrite NEGATIVE Urine Bilirubin NEGATIVE Urine Urobilinogen 1+ H Urine Leukocyte Esterase NEGATIVE Urine Microscopic RBC 0 Urine Microscopic WBC 4 Urine Bacteria FEW A Urine Mucus MANY A Urine Hemoglobin NEGATIVE Urine Glucose NEGATIVE Urine Total Protein 1+ H Sodium Level 142 138 Potassium Level 4.0 4.2 Chloride Level 103 106 Carbon Dioxide Level 29 28 Anion Gap 10 4 L Blood Urea Nitrogen 12 11 Creatinine 0.72 0.78 Est Glomerular Filtrat Rate mL/min > 60 > 60 Glucose Level 98 167 Calcium Level 9.8 8.6 Total Bilirubin 0.7 Direct Bilirubin 0.00 Indirect Bilirubin 0.7 Aspartate Amino Transf (AST/SGOT) 31 Alanine Aminotransferase (ALT/SGPT) 24 Alkaline Phosphatase 115 Total Protein 8.6 H Albumin 4.9 Globulin 3.70 H Albumin/Globulin Ratio 1.32 Lipase 31 Free Thyroxine 0.93 Hemoglobin A1c 5.2 Triglycerides Level 49 Cholesterol Level 151 LDL Cholesterol, Calculated 87 HDL Cholesterol 54 Cholesterol/HDL Ratio 2.7 Thyroid Stimulating Hormone (TSH) 0.257 L Medications Medication Current Medications IV Flush (NS 3 ml) 3 ml PER PROTOCOL IV ; Start 12/18/18 at 19:00 Ondansetron HCl (Zofran Inj) 4 mg Q6H PRN IV NAUSEA/VOMITING; Start 12/18/18 at 19:00 Acetaminophen (Tylenol Tab) 650 mg Q6H PRN PO .PAIN 1-3 OR TEMP; Start 12/18/18 at 19:00 Acetaminophen/ Hydrocodone Bitart ([place] (5/325)) 1 tab Q6H PRN PO .MOD PAIN 4- 6; Start 12/18/18 at 19:00 Morphine Sulfate (morphine) 2 mg Q4H PRN IV .SEVERE PAIN 7-10 Last administered on 12/18/18at 21:57; Admin Dose 2 MG; Start 12/18/18 at 19:00 Docusate Sodium (Colace) 100 mg Q12H PRN PO .CONSTIPATION; Start 12/18/18 at 19:00 Magnesium Hydroxide (Milk Of Mag) 30 ml DAILY PRN PO .CONSTIPATION; Start 12/18/18 at 19:00 Lorazepam (Ativan) 0.5 mg Q6H PRN IV ANXIETY; Start 12/18/18 at 19:00 Albuterol/ Ipratropium (Duoneb) 3 ml Q4H RESP THERAPY PRN HHN SHORTNESS OF BREATH; Start 12/18/18 at 19:00 Nitroglycerin (Nitroglycerin (Sl Tab) 0.4 Mg) 1 tab Q5M PRN SL ANGINA; Start 12/18/18 at 19:00 Heparin Sodium (Porcine) (Heparin (5000 Units/1ml)) 5,000 unit Q12 SC Last administered on 12/19/18at 08:56; Admin Dose 5,000 UNIT; Start 12/18/18 at 22:00 Piperacillin Sod/ Tazobactam Sod 100 ml @ 200 mls/hr Q6 IVPB Last administered on 12/19/18at 05:32; Admin Dose 200 MLS/HR; Start 12/19/18 at 06:00 Ondansetron HCl (Zofran Inj) 4 mg Q6H PRN IV NAUSEA AND/OR VOMITING; Start 12/19/18 at 01:00 Acetaminophen (Tylenol Tab) 650 mg Q6H PRN PO PAIN LEVEL 1-3 OR FEVER; Start 12/19/18 at 01:00 Ibuprofen (Motrin) 600 mg Q6H PRN PO PAIN LEVEL 1-3; Start 12/19/18 at 01:00 Hydromorphone HCl (Dilaudid) 0.5 mg Q4H PRN IV PAIN LEVEL 8-10; Start 12/19/18 at 01:00 Acetaminophen/ Hydrocodone Bitart ([place] (5/325)) 1 tab Q6H PRN PO PAIN LEVEL 4-7; Start 12/19/18 at 01:00 Potassium Chloride/Dextrose/ Sod Cl 1,000 ml @ 100 mls/hr Q10H IV Last administered on 12/19/18at 08:58; Admin Dose 100 MLS/HR; Start 12/19/18 at 00:31 SAMEER MILLER Dec 19, 2018 12:02
[2018-12-20 02:40] VITALS: BP 94/58; PULSE 84; RESP 18
[2018-12-20] MEDS: PIPER-TAZO 3.375 GM IV (PMX) 100 ML IVPB SCH ×2 (05:22→12:47)
[2018-12-20] MEDS: D5W-0.45 NACL + KCL 20 MEQ 1,000 ML IV SCH (06:50)
[2018-12-20 07:44] VITALS: BP 100/58; PULSE 80; RESP 18
[2018-12-20] MEDS: HEPARIN 5,000 UNIT/1 ML VIAL SC SCH (09:47)
--- NOTE | 2018-12-20 14:46 | PDOCDIS ---
Discharge Instructions CONDITION [id number] Patient Condition: [id number] Stable ACTIVITY: [id number] Activity Restrictions: [id number] Slowly Increase Activity Rest between Activity Avoid heavy lifting FOLLOW UP/APPOINTMENTS Follow-up Plan Please take your medications as prescribed. Please see your doctor in the clinic in the next 1 week. SAMEER MILLER Dec 20, 2018 14:46
[2018-12-20 14:48] VITALS: BP 97/60; PULSE 84; RESP 17
[2018-12-20] MEDS ORDERED: CIPR500T4 PO (14:48)
[2018-12-20] MEDS ORDERED: HYDR-4011 PO (14:48)
[2018-12-20] MEDS ORDERED: METR500T PO (14:48)
--- NOTE | 2018-12-20 14:52 | DS ---
Date/Time of Note Date/Time of Note DATE: 12/20/18 TIME: 14:50 Discharge Summary Admission/Discharge Info Admit Date/Time Dec 18, 2018 at 19:30 Discharge Date/Time Discharge Diagnosis 1. Abdominal pain secondary to acute appendicitis-again status post surgical procedure laparoscopic appendectomy Patient Condition: Stable Procedures Date/Time of Note Date/Time of Note DATE: 12/19/18 TIME: 00:37 Operative Report Free Text/Dictation Operative report Procedure Date: Dec 19, 2018 Preoperative Diagnosis Acute appendicitis possible perforation Postoperative Diagnosis Perforated appendicitis Operation/Procedure Performed Laparoscopic appendectomy Surgeon Emanuel Griffith MD Hx of Present Illness 43-year-old male with no significant past medical history who has been having abdominal pain. He had some mild nausea, vomiting symptoms, nonbilious, nonbloody. All these symptoms have been going on for the last 2 days. He has n ever had these symptoms before. He has had some questionable subjective fevers and chills, but no chest pain, no upper or lower GI bleeding, no shortness of breath, no diarrhea or constipation. No headaches or dizziness or loss of consciousness. When the patient came in, he had imaging study performed including a gallbladder ultrasound that was unremarkable, but a CT abdomen and pelvis did show signs of combination of findings compatible with acute appendicitis with contained microperforation, a tiny punctate focus of extraluminal gas abnormal appendix with free fluid in the pelvis, but no evidence of any abscess formation or pneumoperitoneum. There is also fat- containing umbilical hernia with no evidence of any inflammation or fluid in the hernia sac and a call was made out to the general surgeon to come evaluate the patient which is still pending. The patient was also given a dose of pain control medications, IV fluids and IV antibiotics in the ER. Hospital Course Patient was admitted to medical surgical unit. Patient underwent surgical procedure by surgery team. This included laparoscopic appendectomy. Over the course of his hospital stay afterwards he was placed on antibiotics because of concern of microperforation. He was eventually able to ambulate, tolerated p.o. diet. Labs are stable, no fevers. Patient will be discharged home later today in improved condition. Patient will go home with antibiotics. See below for full list of discharge medications. Home Meds Active Scripts Metronidazole* (Flagyl*) 500 Mg Tablet, 500 MG PO TID for 7 Days, #21 TAB Prov:SAMEER MILLER S. 12/20/18 Ciprofloxacin Hcl* (Ciprofloxacin Hcl*) 500 Mg Tablet, 500 MG PO BID for 7 Days, #14 TAB Prov:SAMEER MILLER S. 12/20/18 Hydrocodone/Acetaminophen ([place] 5-325 Tablet) 1 Each Tablet, 1 EACH PO Q6, #10 TAB Prov:SAMEER MILLER. 12/20/18 Follow-up Plan Please take your medications as prescribed. Please see your doctor in the clinic in the next 1 week. Primary Care Provider Care Physician No Primary Time spent on discharge: > 30 minutes Pending Labs Laboratory Tests Test 12/20/18 04:31 12/20/18 04:32 Sodium Level 141 mmol/L (135-144) Potassium Level 4.0 mmol/L (3.5-5.1) Chloride Level 108 mmol/L (97-110) Carbon Dioxide Level 26 mmol/L (21-31) Anion Gap 7 (5-13) Blood Urea Nitrogen 13 mg/dl (7-20) Creatinine 0.87 mg/dl (0.61-1.24) Est Glomerular Filtrat > 60 mL/min (>60) Rate mL/min Glucose Level 127 mg/dl (70-220) Calcium Level 8.8 mg/dl (8.4-10.2) White Blood Count 11.1 10^3/ul (4.8-10.8) Red Blood Count 4.53 10^6/ul (4.70-6.10) Hemoglobin 11.6 g/dl (14.0-18.0) Hematocrit 35.8 % (42.0-52.0) Mean Corpuscular Volume 79.0 fl (82.0-101.0) Mean Corpuscular Hemoglobin 25.6 pg (29.0-33.0) Mean Corpuscular 32.4 g/dl (32.0-37.0) Hemoglobin Concent Red Cell Distribution Width 14.4 % (11.5-14.5) Platelet Count 160 10^3/UL (140-415) Mean Platelet Volume 10.3 fl (7.4-10.4) Immature Granulocytes % 0.500 % (0.001-0.429) Neutrophils % 77.6 % (39.0-77.0) Lymphocytes % 14.4 % (15.0-51.0) Monocytes % 7.0 % (0.0-11.0) Eosinophils % 0.3 % (0.0-7.0) Basophils % 0.2 % (0.0-2.0) Nucleated Red Blood Cells % 0.0 /100WBC (0.0-0.0) Immature Granulocytes # 0.060 10^3/ul (0.0-0.031) Neutrophils # 8.6 10^3/ul (1.6-7.5) Lymphocytes # 1.6 10^3/ul (0.8-2.9) Monocytes # 0.8 10^3/ul (0.3-0.9) Eosinophils # 0.0 10^3/ul (0.0-0.5) Basophils # 0.0 10^3/ul (0.0-0.1) Nucleated Red Blood Cells # 0.0 10^3/ul (0.0-0.0) SAMEER MILLER Dec 20, 2018 14:52
== END 2018-12-20 16:22 | disposition home or self-care (01) | DRG 340 ==
LOC: FTE 14:38 → MS1 19:30
PROVIDERS: ADMIT Hospitalist; ATTEND Hospitalist
PROC: 0DTJ4ZZ Resection of Appendix, Percutaneous Endoscopic Approach (ICD-10-PCS; principal; 2018-12-18 21:30)
DX: K35.32 Acute appendicitis with perforation, localized peritonitis, and gangrene, without abscess (principal); F17.210 Nicotine dependence, cigarettes, uncomplicated
CPT/HCPCS: 36415; 74176; 76705; 80048; 80053; 80061; 81001; 83036; 83690; 84439; 84443; 85025; 85610; 85730; 87070; 87075; 87102; 87116; 88304; 96361; 96365; 96375; J1100; J1644; J2270; J2405; J2543; J2710; J3010; J3480; J7030